=== PATIENT | female | born 1980 ===

== ENCOUNTER 2022-06-14 15:52 | Inpatient (IN) | payer OTHER ==
[~2022-06-14] VITALS: Ht 170.2 cm; Wt 86.2 kg
[2022-06-15] MEDS ORDERED: COZAAR50 MG PO (14:04)
[2022-06-23] MEDS ORDERED: NEURONTIN300 MG PO (06:37)
[2022-06-23] MEDS ORDERED: PRILOSEC OTC20 MG PO (06:37)
[2022-06-23] MEDS ORDERED: ACETAMINOPHEN500 M2 PO (06:37)
== END 2022-06-23 09:32 | disposition home or self-care (01) | DRG 330 ==
LOC: SURH 06-20 06:33 → O/R 06-20 06:33 → SURG 06-20 07:00 → SURH 06-20 14:03
PROVIDERS: ADMIT Surgery; ATTEND Surgery
PROC: 0DBP4ZZ Excision of Rectum, Percutaneous Endoscopic Approach (ICD-10-PCS; 2022-06-20)
PROC: 0DJD8ZZ Inspection of Lower Intestinal Tract, Via Natural or Artificial Opening Endoscopic (ICD-10-PCS; 2022-06-20)
PROC: 0DTN4ZZ Resection of Sigmoid Colon, Percutaneous Endoscopic Approach (ICD-10-PCS; principal; 2022-06-20 07:00)
DX: K57.32 Diverticulitis of large intestine without perforation or abscess without bleeding (principal); K55.1 Chronic vascular disorders of intestine; R10.32 Left lower quadrant pain; N73.6 Female pelvic peritoneal adhesions (postinfective); N99.4 Postprocedural pelvic peritoneal adhesions; Z20.822 Contact with and (suspected) exposure to COVID-19